=== PATIENT | male | born 1950 | race Caucasian/White ===

== ENCOUNTER 2020-05-26 08:05 | Outpatient (CLI) | payer MEDICARE, OTHER ==
[2020-05-26 16:54] LABS: SARS-CoV-2 MS2 Positive; SARS-CoV-2 N Gene Negative; SARS-CoV-2 S Gene Negative; SARS-CoV-2 by NAA Not Detected (NotDetected); SARS-CoV-2 orf1ab Negative
== END 2020-05-26 08:06 | disposition home or self-care (01) ==
LOC: LABBT 08:05
PROVIDERS: ATTEND Neurological Surgery
DX: D64.9 Anemia, unspecified (principal); Z85.038 Personal history of other malignant neoplasm of large intestine; Z85.51 Personal history of malignant neoplasm of bladder; Z20.828 Contact with and (suspected) exposure to other viral communicable diseases
CPT/HCPCS: 87635; U0003

== ENCOUNTER 2020-05-31 08:20 | Day surgery (SDC) | payer MEDICARE, OTHER ==
[2020-05-28 11:52] VITALS: BMI 24.8
[2020-05-31] MEDS ORDERED: Lidocaine 1% PF 5 ML VIAL ONE (09:33)
[2020-05-31] MEDS ORDERED: PROPOFOL 200 MG/20 ML VIAL ONE (09:33)
--- NOTE | 2020-05-31 12:44 | OP ---
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 PROCEDURES PERFORMED: 1. Esophagogastroduodenoscopy, diagnostic. 2. Colonoscopy, diagnostic. INDICATIONS: 1. Iron-deficiency anemia. 2. Prior history of colon cancer status post rectosigmoid resection in 2013. The patient has not undergone any colonoscopy since that time. MEDICATIONS: See Anesthesia record. FINDINGS: After discussion of the risks, benefits, and alternatives of the procedure, informed consent was obtained and witnessed. Pre-endoscopic cardiopulmonary examination was satisfactory. Time-out was performed before sedation was achieved. Sedation was achieved with Anesthesia assistance in the endoscopy unit. A Pentax adult upper endoscope was placed into the oropharynx and passed through the cricopharyngeus under direct visualization. The esophageal mucosa appeared normal throughout with a normal-appearing Z-line. The endoscope was advanced into the stomach. Forward and retroflexed views of the entire gastric mucosa were obtained. The gastric mucosa appeared normal. The endoscope was passed through the pylorus and into the first and second portions of the duodenum, which also appeared normal. The upper endoscope was completely withdrawn and the patient was repositioned. Digital rectal exam was performed, which was unremarkable. A Pentax adult colonoscope was inserted into the anus and passed forward to the cecum in the usual fashion. The navigation to the cecum was difficult due to significant tortuosity of the colon. There was an end-to-end colocolonic anastomosis in the rectosigmoid area at 15 cm. There was no stricture here, but there was quite sharp angulation in the area, making advancement of the colonoscope difficult. There was some friability at the anastomosis as well, though no ulceration or erosion in the area. The endoscope was able to be passed to the cecum, visualized by the appendiceal orifice as well as the ileocecal valve. The terminal ileum was not intubated. The colonoscope was slowly withdrawn in a gradual circumferential manner with careful examination of the entire colonic mucosa. The quality of the prep was good. There were a few scattered diverticula with no evidence of inflammation. There were no polyps or mass lesions visualized. The rectosigmoid anastomotic area again appears friable with a sharp angulation just proximal to the anastomosis, but no stricture, no mass lesion in the area. Retroflexion in the rectum showed some small internal hemorrhoids. The colonoscope was completely withdrawn and the patient allowed to recover. The patient tolerated the procedure well. There were no immediate postprocedure complications. IMPRESSION: 1. Normal esophagogastroduodenoscopy. 2. Patent end-to-end colocolonic anastomosis in the rectosigmoid colon at 15 cm from the anal verge. There was sharp acute angulation in this area and some friability, but no ulceration or erosion. 3. Tortuous colon. 4. Otherwise normal colonoscopy to the cecum. RECOMMENDATIONS: 1. Repeat colonoscopy for surveillance at a 3-year interval. 2. Follow up with Dr. Pearce for iron therapy and transfusion if needed. Job ID: [id number]
== END 2020-05-31 11:50 | disposition home or self-care (01) ==
LOC: SDC 08:20
PROVIDERS: ATTEND Internal Medicine
PROC: 0DJ08ZZ Inspection of Upper Intestinal Tract, Via Natural or Artificial Opening Endoscopic (ICD-10-PCS; principal; 2020-05-31)
PROC: 0DJD8ZZ Inspection of Lower Intestinal Tract, Via Natural or Artificial Opening Endoscopic (ICD-10-PCS; 2020-05-31)
DX: D50.9 Iron deficiency anemia, unspecified (principal); Q43.8 Other specified congenital malformations of intestine; Z85.038 Personal history of other malignant neoplasm of large intestine; Z79.82 Long term (current) use of aspirin; Z79.899 Other long term (current) drug therapy; Z91.018 Allergy to other foods; Z90.49 Acquired absence of other specified parts of digestive tract
CPT/HCPCS: J2704

== ENCOUNTER 2023-06-12 10:52 | Outpatient (CLI) | payer MEDICARE, OTHER ==
[2023-06-12] MEDS ORDERED: Iopamidol 370 76% 100 ML VIAL ONE (11:41)
== END 2023-06-12 10:53 | disposition home or self-care (01) ==
LOC: BICCT 10:52
PROVIDERS: ATTEND Urology
DX: C67.1 Malignant neoplasm of dome of bladder (principal); K80.20 Calculus of gallbladder without cholecystitis without obstruction; Z90.79 Acquired absence of other genital organ(s); Z90.6 Acquired absence of other parts of urinary tract
CPT/HCPCS: 74178; 82565